=== PATIENT | male | born 1960 | race African-American/Black ===

== ENCOUNTER 2017-04-10 08:17 | Emergency (ER) | payer MEDICAID, OTHER ==
[~2017-04-10] VITALS: Ht 177.8 cm; Wt 80.0 kg
[~2017-04-10 08:17] MED LIST: ACET-2178 PO; ATOR10TA69 PO; CARV6.2548 PO; CHOL100046 PO; FLUO-124 PO; LEVE500T19 PO; QUET100T PO
[2017-04-10] MEDS ORDERED: SODIUM CHLORIDE 0.9% 1,000 ML IV ONE (08:26)
[2017-04-10] MEDS ORDERED: LEVETIRACETAM 500 MG in SODIUM CHLORIDE 0.9% 100 ML IV SCH (08:30)
[2017-04-10] MEDS ORDERED: LEVETIRACETAM 500MG TABLET PO ONE (08:45)
[2017-04-10 08:52] LABS: BASOPHILS % 0.4 % (0.0-2.0); EOSINOPHILS % 2.9 % (0.0-5.0); HEMOGLOBIN. 14.5 g/dL (14.0-18.0); LYMPHOCYTES % 34.9 % (20.0-50.0); MEAN CORPUSCULAR HEMOGLOBIN 31.4 pg (28.0-32.0); MEAN PLATELET VOLUME 9.5 fl (7.4-10.4); MONOCYTES % 8.4 % (2.0-8.0); NEUTROPHILS % 53.4 % (40.0-76.0); PLATELET 119 x1000/uL (130-400); RED BLOOD CELL COUNT 4.61 mill/uL (4.7-6.1)
[2017-04-10 08:55] LABS: CHLORIDE 109 mEq/L (98-107)
[2017-04-10 08:58] LABS: INR 1.1; PARTIAL THROMBOPLASTIN TIME 22.8 sec (23.4-31.0); PROTHROMBIN TIME 11.4 sec (9.4-11.6)
[2017-04-10] MEDS ORDERED: LEVETIRACETAM 500MG PREMIX 100 ML IV ONE (09:00)
[2017-04-10 09:01] LABS: CARBON DIOXIDE 24 mEq/L (21-32); ETHANOL BLOOD < 10 mg/dL
[2017-04-10 10:27] VITALS: BP 145/96
[2017-04-11] MEDS ORDERED: LEVETIRACETAM 500 MG in SODIUM CHLORIDE 0.9% 100 ML IV SCH (08:30)
== END 2017-04-10 10:43 | disposition home or self-care (01) ==
LOC: ER 08:19
DX: G40.909 Epilepsy, unspecified, not intractable, without status epilepticus (principal); S00.511A Abrasion of lip, initial encounter; I10 Essential (primary) hypertension; E78.00 Pure hypercholesterolemia, unspecified; Z86.73 Personal history of transient ischemic attack (TIA), and cerebral infarction without residual deficits; W01.0XXA Fall on same level from slipping, tripping and stumbling without subsequent striking against object, initial encounter; Y93.89 Activity, other specified; Y92.018 Other place in single-family (private) house as the place of occurrence of the external cause
CPT/HCPCS: 36415; 70450; 80048; 85025; 85610; 85730; 96365; 99285; G0482; J1953; J7030; J7050

== ENCOUNTER 2025-05-09 10:41 | Emergency (ER) | payer OTHER ==
[~2025-05-09] VITALS: Ht 167.6 cm; Wt 73.0 kg
[~2025-05-09 10:41] MED LIST changes: -ACET-2178 PO; -FLUO-124 PO; +FLUO-413 PO; +TOPUD PO
[2025-05-09 10:48] VITALS: TEMP 97.9; O2SAT 98
[2025-05-09 13:22] VITALS: BP 122/87; PULSE 69; RESP 16; O2SAT 100
== END 2025-05-09 13:24 | disposition home or self-care (01) ==
LOC: ER 10:41
DX: R10.9 Unspecified abdominal pain (principal); E78.00 Pure hypercholesterolemia, unspecified; I10 Essential (primary) hypertension; Z79.899 Other long term (current) drug therapy; Z86.73 Personal history of transient ischemic attack (TIA), and cerebral infarction without residual deficits
CPT/HCPCS: 99283